=== PATIENT | female | born 1970 | race Caucasian/White ===

== ENCOUNTER 2017-04-03 09:30 | Emergency (ER) | payer SELFPAY ==
[~2017-04-03] VITALS: Ht 157.5 cm; Wt 59.1 kg
[2017-04-03] MEDS ORDERED: LIB5 PO (09:37)
[2017-04-03 10:59] LABS: BASOPHILS % (AUTO) 0.3 % (0.0-2.0); EOSINOPHILS % (AUTO) 0.5 % (1.0-6.0); HEMATOCRIT 32.6 % (36-46); LYMPHOCYTES # (AUTO) 1.2 K/uL (1.0-4.8); LYMPHOCYTES % (AUTO) 16.5 % (22.0-44.0); MEAN CORPUSCULAR HEMOGLOBIN 29.7 pg (26.0-34.0); MEAN CORPUSCULAR HGB CONC 33.9 G/dL (31.0-37.0); MEAN CORPUSCULAR VOLUME 88 fL (80-100); MONOCYTES # (AUTO) 0.3 K/uL (0.1-1.0); MONOCYTES % (AUTO) 4.5 % (2.0-9.0); NEUTROPHILS # (AUTO) 5.7 K/uL (1.8-7.7); NEUTROPHILS % (AUTO) 78.2 % (40.0-70.0); PLATELET COUNT (AUTO) 116 K/uL (150-450); RED BLOOD CELL COUNT(AUTO) 3.72 MIL/uL (4.00-5.20); RED CELL DISTRIBUTION WIDTH 20.8 % (11.5-14.5); WHITE BLOOD COUNT (AUTO) 7.3 K/uL (4.5-11.0)
[2017-04-03 11:02] LABS: ANION GAP 9 mmol/L (8-16); CALCIUM, TOTAL 8.4 mg/dL (8.8-10.5); CARBON DIOXIDE 27 mmol/L (22-29); CHLORIDE 101 mmol/L (98-107); CREATININE 0.83 mg/dL (0.60-1.30); GLOMERULAR FILTR. RATE CALC > 60 mL/min (>60); SODIUM SERUM 137 mmol/L (136-145); UREA NITROGEN, BLOOD 10 mg/dL (7-18)
[2017-04-03 11:08] LABS: ALANINE AMINOTRANSFERASE 95 U/L (12-78); ALBUMIN 3.4 g/dL (3.4-5.0); ASPARTATE AMINOTRANSFERASE 149 U/L (15-37); BILIRUBIN,TOTAL 0.9 mg/dL (0.1-1.0); TOTAL PROTEIN, SERUM 6.8 g/dL (6.4-8.2)
[2017-04-03] MEDS ORDERED: LORazepam 1 MG TABLET PO ONE (11:15)
[2017-04-03 11:33] LABS: RBC MORPHOLOGY COMMENT ABNORMAL RBC MORPH
[2017-04-03 12:01] VITALS: BP 146/89
== END 2017-04-03 12:02 | disposition home or self-care (01) ==
LOC: EMS 09:45
DX: K92.1 Melena (principal); Z88.6 Allergy status to analgesic agent
CPT/HCPCS: 99284